=== PATIENT | female | born 1970 | race Caucasian/White ===

== ENCOUNTER 2016-10-12 14:35 | Emergency (ER) | payer SELFPAY ==
[~2016-10-12] VITALS: Ht 154.9 cm; Wt 78.5 kg
[~2016-10-12 14:35] MED LIST: ATIVAN1 MG PO; ENALAPRIL MALEAT5 MG PO; FOL1 PO; GLU500 PO; MULTI-VITAMINS1 TAB PO; THI100 PO; TYLENOL EXTRA500 M2 PO
[2016-10-12 18:20] LABS: PLATELET COUNT 168 x10^3mcL (130-400); RED CELL DISTRIBUTION WIDTH 15.5 % (11.5-14.5)
[2016-10-12 18:30] LABS: CALCIUM 8.3 mg/dL (8.5-10.1); CARBON DIOXIDE 22.2 mmol/L (21-32); CHLORIDE SERUM 108 mmol/L (98-107); CREATININE SERUM 0.7 mg/dL (0.6-1.0); GFR1 > 60 mL/min; GLUCOSE SERUM 81 mg/dL (74-106); POTASSIUM SERUM 3.6 mmol/L (3.5-5.1); SODIUM SERUM 142 mmol/L (136-145)
[2016-10-12 18:37] LABS: ALBUMIN 1.7 g/dL (3.4-5.0); ALKALINE PHOSPHATASE 101 U/L (46-116); ALT/SGPT 20 U/L (14-59); AST/SGOT 72 U/L (15-37); BILIRUBIN TOTAL 0.8 mg/dL (0.20-1.00); MAGNESIUM 1.3 mg/dL (1.8-2.4); TOTAL PROTEIN, SERUM 6.2 g/dL (6.4-8.2)
[2016-10-12 20:46] LABS: AMPHETAMINE QUAL UR NONE DETECTED (NEG <=1000)
[2016-10-13 00:23] VITALS: BP 144/89
== END 2016-10-13 00:23 | disposition home or self-care (01) ==
LOC: ED 14:35
PROVIDERS: Emergency Medicine
DX: F10.10 Alcohol abuse, uncomplicated (principal); R60.0 Localized edema; E11.9 Type 2 diabetes mellitus without complications; Z79.84 Long term (current) use of oral hypoglycemic drugs; Z88.5 Allergy status to narcotic agent; Z88.8 Allergy status to other drugs, medicaments and biological substances
CPT/HCPCS: 80307; G0480; J3411; J3475; J3490; J7030; Q0092